=== PATIENT | male | born 1945 | race African-American/Black ===

== ENCOUNTER 2017-11-28 18:26 | Emergency (ER) | payer MEDICARE ==
[~2017-11-28] VITALS: Ht 180.3 cm; Wt 103.4 kg
[2017-11-28] MEDS ORDERED: FAMOTIDINE 20 MG TAB PO ONE (20:15)
[2017-11-28] MEDS ORDERED: DEXAMETHASONE SOD PHOS 10 MG/1 ML VIAL INH ONE (20:15)
== END 2017-11-28 20:47 | disposition home or self-care (01) ==
LOC: ER 18:26
DX: L50.0 Allergic urticaria (principal); T61.784A Other shellfish poisoning, undetermined, initial encounter; I10 Essential (primary) hypertension
CPT/HCPCS: 96372; 99283; J1100

== ENCOUNTER 2019-12-27 11:18 | Inpatient (IN) | payer MEDICARE, OTHER ==
[~2019-12-27] VITALS: Ht 180.3 cm; Wt 98.9 kg
--- OUTSIDE RECORDS SUMMARY | 2019-12-27 11:20 | XMS REPORT ---
Author [facility] Address Unknown Phone Unavailable Care Team Providers Care Online Marketing Coordinator Name Role Phone NONSTAFF PP Unavailable Payers Payer Name Policy Type Policy Number Effective Date Expiration Date Medicare A & B [id number] Problems This patient has no known problems. Allergies, Adverse Reactions, Alerts This patient has no known allergies or adverse reactions. Medications This patient has no known medications. Encounters Start Date/Time End Date/Time Encounter Type Admission Type Attending [facility] Care Facility Care Department Encounter ID 2017-11-28 18:26:00 2017-11-28 20:47:00 Departed Emergency Room [facility] [id number]
[2019-12-27] MEDS ORDERED: SODIUM CHLORIDE 0.9% 1000ML 1,000 ML IV STA (11:40)
[2019-12-27] MEDS ORDERED: PANTOPRAZOLE 40 MG 10ML VIAL IV STA (11:40)
[2019-12-27 11:51] LABS: BASOPHILS # (AUTO) 0.1 (0.0-0.1); BASOPHILS % 0.7 % (0.0-1.0); EOSINOPHILS # (AUTO) 0.1 (0.0-0.4); EOSINOPHILS % 1.6 % (0.0-6.0); HEMATOCRIT 41.2 % (38.2-49.6); HEMOGLOBIN 14.2 g/dL (14.0-18.0); LYMPHOCYTES # (AUTO) 2.5 (1.0-3.2); MEAN CORPUSCULAR HEMOGLOBIN 31.9 pg (28-32); MEAN CORPUSCULAR HGB CONC 34.5 g/dL (31-35); MEAN CORPUSCULAR VOLUME 92.6 fL (81-99); MONOCYTES # (AUTO) 0.8 (0.2-0.8); MONOCYTES % 10.3 % (4.4-11.3); NEUTROPHILS # (AUTO) 4.1 (2.1-6.9); NEUTROPHILS % 54.1 % (38.7-80.0); PLATELET COUNT 264 x10e3/uL (140-360); RED BLOOD COUNT 4.45 x10e6/uL (4.3-5.7); RED CELL DISTRIBUTION WIDTH 11.7 % (11.7-14.4)
[2019-12-27 12:02] LABS: INR 0.98; PARTIAL THROMBOPLASTIN TIME 26.2 seconds (23.8-35.5); PROTHROMBIN TIME 13.6 seconds (11.9-14.5)
[2019-12-27 12:13] LABS: ALANINE AMINOTRANSFERASE 19 IU/L (0-55); ALBUMIN 3.8 g/dL (3.5-5.0); ALBUMIN/GLOBULIN RATIO 1.3 (0.8-2.0); ALKALINE PHOSPHATASE 57 IU/L (40-150); ANION GAP 11.2 mmol/L (8-16); BLOOD UREA NITROGEN 12 mg/dL (7-26); BUN/CREATININE RATIO 11 (6-25); CARBON DIOXIDE 24 mmol/L (22-29); CHLORIDE 107 mmol/L (98-107); CREATINE KINASE 367 IU/L (30-200); CREATININE, SERUM 1.05 mg/dL (0.72-1.25); EST GLOMERULAR FILTRATION RATE > 60 ML/MIN (60-); GLUCOSE 198 mg/dL (74-118); MAGNESIUM 1.8 MG/DL (1.3-2.1); POTASSIUM 4.2 mmol/L (3.5-5.1); SODIUM 138 mmol/L (136-145)
[2019-12-27] MEDS ORDERED: DIATRIZOATE MEGL/DIATRIZOA SOD 30 ML BTL PO ONE (12:40)
[2019-12-27] MEDS ORDERED: SODIUM CHLORIDE 0.9% 50ML 50 ML ONE (13:33)
[2019-12-27] MEDS ORDERED: IOPAMIDOL 370 MG/ML 200 ML INFUS..BTL INJ ONE (13:33)
--- NOTE | 2019-12-27 14:06 | Diagnostic Imaging Report ---
CT of the abdomen and pelvis History: Bright blood per rectum, suprapubic and left lower quadrant tenderness Comparison: None available. Technique: Multidetector CT scanning of the abdomen and pelvis was performed from the level of the lung bases to the inferior pubic ramus with IV and oral contrast. DOSE REDUCTION: The examination was performed according to departmental dose-optimization program which includes automated exposure control, adjustment of the mA and/or kV according to patient size and/or use of iterative reconstruction technique. Discussion: The lung bases are clear. No focal hepatic lesions are identified. The gallbladder is present nondistended. There are radiopaque gallstones. Spleen is within normal limits. The bilateral adrenal glands are unremarkable. The pancreas is normal in attenuation. There is no pancreatic ductal dilatation or peripancreatic inflammatory stranding. The kidneys are normal in size and enhance symmetrically. There is no hydroureteronephrosis bilaterally. No renal calculi are identified. The stomach, small, and large bowel are nondistended. There is no evidence of obstruction. The appendix is normal. There is extensive colonic diverticulosis throughout the entire colon. Focal wall thickening with mild surrounding inflammatory changes in the mesenteric fat are present in the sigmoid colon compatible with acute diverticulitis. There is no evidence of perforation or abscess formation. There is no free intraperitoneal air or ascites. The abdominal aorta is of normal course and caliber and demonstrates mild atherosclerotic calcifications. The urinary bladder is within normal limits. The prostate is not enlarged There are no acute osseous abnormalities. There are multilevel degenerative changes of the thoracolumbar spine which are most pronounced at L4-L5 IMPRESSION: Acute sigmoid diverticulitis. No evidence of perforation or abscess formation. Signed by: Wong Holm MD on 12/27/2019 2:02 PM
[2019-12-27] MEDS ORDERED: PIPER-TAZ 3.375 GM 50 ML IV SCH (14:15)
[2019-12-27] MEDS: METRONIDAZOLE 500MG/NS 100ML 100 ML IV SCH ×2 (14:15→20:33)
[2019-12-27] MEDS: SODIUM CHLORIDE 0.9% 1000ML 1,000 ML IV SCH ×2 (14:18→21:39)
[2019-12-27] MEDS ORDERED: PIPER-TAZ 3.375 GM 50 ML ONE (14:26)
[2019-12-27] MEDS: PIPER-TAZ 3.375 GM 50 ML IV SCH ×2 (15:00→21:39)
--- NOTE | 2019-12-27 15:06 | NUR ---
Recvd patient from ER. AAOx3 , Assisted him to bed, no distress noted, keep monitoring
[2019-12-27 16:20] VITALS: BP 164/104
[2019-12-27 16:30] VITALS: BP 132/96
[2019-12-27] MEDS ORDERED: CLONIDINE HCL 0.1 MG TAB PO PRN (18:15)
--- NOTE | 2019-12-27 19:20 | NUR ---
RECEIVED THE PT IN REPORT.LYEING IN THE BED.IV FLUID RUNNING.STABLE CONDITION.
[2019-12-27 20:00] VITALS: BP 136/79
[2019-12-27 20:18] LABS: BASOPHILS # (AUTO) 0.1 (0.0-0.1); BASOPHILS % 0.9 % (0.0-1.0); EOSINOPHILS # (AUTO) 0.1 (0.0-0.4); EOSINOPHILS % 1.4 % (0.0-6.0); HEMATOCRIT 42.1 % (38.2-49.6); HEMOGLOBIN 13.7 g/dL (14.0-18.0); LYMPHOCYTES # (AUTO) 2.5 (1.0-3.2); LYMPHOCYTES % 35.9 % (18.0-39.1); MEAN CORPUSCULAR HEMOGLOBIN 32.2 pg (28-32); MEAN CORPUSCULAR HGB CONC 32.5 g/dL (31-35); MEAN CORPUSCULAR VOLUME 99.1 fL (81-99); MONOCYTES # (AUTO) 0.6 (0.2-0.8); MONOCYTES % 9.3 % (4.4-11.3); NEUTROPHILS # (AUTO) 3.6 (2.1-6.9); NEUTROPHILS % 52.2 % (38.7-80.0); PLATELET COUNT 236 x10e3/uL (140-360); RED BLOOD COUNT 4.25 x10e6/uL (4.3-5.7); RED CELL DISTRIBUTION WIDTH 11.9 % (11.7-14.4)
--- NOTE | 2019-12-27 21:07 | History and Physical ---
CHIEF COMPLAINT: A 74-year-old gentleman with no prior history, was in usual state of health until he came into the emergency room with rectal bleeding. HISTORY OF PRESENT ILLNESS: Mr. Tracy Arriaga with no prior medical history, was in usual state of health until yesterday when the patient was noted some abdominal pain associated with rectal bleeding. The patient did not mind too much of it, so this is a continuum of problems and the patient did have dark stools with bright red blood in it and had 6 episodes before coming to the hospital, admitted to the hospital for lower GI bleed. The patient has a history of recent travel from [place] about 2 months ago and was seeing his son and has not gone back to [place] yet. The patient had his colonoscopy in 2017, which was normal. PAST MEDICAL HISTORY: Noncontributory. PAST SURGICAL HISTORY: History of hemorrhoidectomy. MEDICATIONS: No medications. ALLERGIES: NO KNOWN DRUG ALLERGIES. SOCIAL HISTORY: No EtOH abuse. No IV drug abuse and no smoking. FAMILY HISTORY: Noncontributory in the family. REVIEW OF SYSTEMS: Negative for chest pain. No shortness of breath. No nausea. No vomiting. No diarrhea. No constipation. Positive for rectal bleeding. No hematemesis either. PHYSICAL EXAMINATION: GENERAL: The patient is alert and oriented x3. No acute distress at this time. VITAL SIGNS: Temperature is 99.1, pulse of 104, respirations 16, blood pressure is 191/98 initially with a pulse oximetry of 98%, currently it is 132/96. HEENT: Normocephalic and atraumatic. Pupils are reactive to light and accommodation. CVS: S1 and S2 normal. Regular rate and rhythm. ABDOMEN: Slightly tender in the left lower quadrant. EXTREMITIES: No clubbing. No cyanosis. No edema. LABORATORY VALUES: White count of 7.60, hemoglobin 14.2, and hematocrit 41.2. Chemistry shows sodium 132, potassium of 4.2, BUN of 12, and creatinine of 1.05. Coags all within normal limits. Stool occult was positive. IMAGING STUDIES: CT of the abdomen and pelvis shows acute sigmoid diverticulitis. No evidence of perforation or abscess formation seen. ASSESSMENT: Mr. Tracy Arriaga with: 1. Diverticulitis. 2. Gastrointestinal bleed. 3. High blood pressure. 4. Abdominal pain. PLAN: Continue with antibiotics. The patient is currently on NaCl 125 mL/h. He is on Zosyn and Flagyl. We will continue on same pantoprazole 40 mg q.12 hours. Continue to monitor the patient. Soft GI diet can be started. GI consult has been done. The patient has been stressed on going back to [place] and having a colonoscopy done at a later date in 3 months from now. Further recommendation per clinical course. We will continue to monitor the patient. Possible discharge in 1 to 2 days depending on the progression of the disease and the symptoms. MD LOUISA OliveiraJ/MODL /[id number]
[2019-12-27] MEDS: PANTOPRAZOLE 40 MG 10ML VIAL IV SCH (21:39)
[2019-12-27 21:54] VITALS: BP 136/79
--- NOTE | 2019-12-27 22:00 | NUR ---
ASSESSMENT DONE.NO RESP.DISTRESS.NO PAIN VOICED.BED LOCKED AND IN LOWEST POSITION.PHONE AND CALL LIGHT WITHIN REACH.INSTRUCTED TO CALL FOR ASSISTANCE NEEDED.
[2019-12-28] VITALS (8 sets, daily range): BP systolic 128–145; BP diastolic 76–98
[2019-12-28] MEDS: METRONIDAZOLE 500MG/NS 100ML 100 ML IV SCH ×4 (02:32→20:30)
[2019-12-28] MEDS: PIPER-TAZ 3.375 GM 50 ML IV SCH ×4 (04:14→21:50)
--- NOTE | 2019-12-28 05:00 | NUR ---
WAS IN THE UNIT.HE WILL SEE THE PATIENT TODAY.PATIENT SLEPT WELL.NO PAIN VOICED.STABLE CONDITION.
[2019-12-28 05:33] LABS: BASOPHILS # (AUTO) 0.1 (0.0-0.1); BASOPHILS % 0.8 % (0.0-1.0); EOSINOPHILS # (AUTO) 0.2 (0.0-0.4); HEMATOCRIT 33.1 % (38.2-49.6); HEMOGLOBIN 11.2 g/dL (14.0-18.0); LYMPHOCYTES # (AUTO) 2.3 (1.0-3.2); LYMPHOCYTES % 31.4 % (18.0-39.1); MEAN CORPUSCULAR HEMOGLOBIN 31.8 pg (28-32); MEAN CORPUSCULAR HGB CONC 33.8 g/dL (31-35); MONOCYTES # (AUTO) 0.7 (0.2-0.8); MONOCYTES % 9.8 % (4.4-11.3); NEUTROPHILS % 54.6 % (38.7-80.0); PLATELET COUNT 212 x10e3/uL (140-360); RED BLOOD COUNT 3.52 x10e6/uL (4.3-5.7); RED CELL DISTRIBUTION WIDTH 11.8 % (11.7-14.4)
[2019-12-28 05:57] LABS: ALANINE AMINOTRANSFERASE 15 IU/L (0-55); ALBUMIN 2.9 g/dL (3.5-5.0); ALBUMIN/GLOBULIN RATIO 1.1 (0.8-2.0); ALKALINE PHOSPHATASE 46 IU/L (40-150); BLOOD UREA NITROGEN 9 mg/dL (7-26); BUN/CREATININE RATIO 8 (6-25); CALCIUM 8.1 mg/dL (8.4-10.2); CARBON DIOXIDE 26 mmol/L (22-29); CHLORIDE 111 mmol/L (98-107); CREATININE, SERUM 1.06 mg/dL (0.72-1.25); EST GLOMERULAR FILTRATION RATE > 60 ML/MIN (60-); GLUCOSE 101 mg/dL (74-118); SODIUM 141 mmol/L (136-145)
--- NOTE | 2019-12-28 07:00 | NUR ---
BED SIDE SHIFT REPORT GIVEN TO ONCOMING RN.STABLE CONDITION.
--- NOTE | 2019-12-28 08:09 | Progress Note ---
DATE: SUBJECTIVE: A 74-year-old healthy male, who comes in with diverticulitis of the sigmoid colon. The patient has no more rectal bleeding. No chest pain. No shortness of breath. No nausea. No vomiting. No diarrhea. The patient has been kept n.p.o. by GI. OBJECTIVE: VITAL SIGNS: Temperature is 98.1, pulse of 86, respirations of 22, blood pressure is 145/76. HEENT: Normocephalic and atraumatic. Pupils are reactive. CVS: S1 and S2 normal. Regular rate and rhythm. ABDOMEN: Tender in the left lower quadrant. EXTREMITIES: No clubbing, no cyanosis, no edema. LABORATORY VALUES: White count is 7.32, hemoglobin 11.2, hematocrit of 33.1. Chemistry shows sodium 141, chloride of 111, calcium of 8.1, total bilirubin is 1.4. Coags are normal. IMAGING STUDIES: From yesterday shows sigmoid diverticulitis. ASSESSMENT: Mr. Tracy Arriaga is with. 1. Gastrointestinal bleed, presumably upper and lower because of dark stools and also bright red blood per rectum. 2. Diverticulitis of the sigmoid. 3. Abdominal pain. PLAN: Continue with antibiotics as ordered. He has been kept n.p.o. by GI. Blood pressure is trending slightly up. Since he is kept n.p.o., we will keep on the same fluid rate. Further recommendation per clinical course. MD GHADA Oliveira/MODL /[id number]
[2019-12-28] MEDS: PANTOPRAZOLE 40 MG 10ML VIAL IV SCH ×2 (09:18→20:30)
[2019-12-28 16:09] LABS: BASOPHILS # (AUTO) 0.1 (0.0-0.1); BASOPHILS % 0.8 % (0.0-1.0); EOSINOPHILS # (AUTO) 0.3 (0.0-0.4); EOSINOPHILS % 4.4 % (0.0-6.0); HEMATOCRIT 32.2 % (38.2-49.6); HEMOGLOBIN 10.7 g/dL (14.0-18.0); LYMPHOCYTES # (AUTO) 2.2 (1.0-3.2); LYMPHOCYTES % 35.1 % (18.0-39.1); MEAN CORPUSCULAR HEMOGLOBIN 31.8 pg (28-32); MEAN CORPUSCULAR HGB CONC 33.2 g/dL (31-35); MEAN CORPUSCULAR VOLUME 95.8 fL (81-99); MONOCYTES # (AUTO) 0.8 (0.2-0.8); MONOCYTES % 11.8 % (4.4-11.3); NEUTROPHILS % 47.7 % (38.7-80.0); PLATELET COUNT 201 x10e3/uL (140-360); RED BLOOD COUNT 3.36 x10e6/uL (4.3-5.7); RED CELL DISTRIBUTION WIDTH 11.9 % (11.7-14.4)
--- NOTE | 2019-12-28 20:00 | NUR ---
Pt visited in room during nursing rounds. Patient alert and oriented x3. Ambulatory in room prn. Pt states he's still been having loose and bloody stools throughout the day but claim the amount of blood is wearing down in amount. CBC to be checked tonight and in AM. Pt on scheduled IV antibiotics. Call schmid within reach. Will monitor closely.
[2019-12-28 21:14] LABS: BASOPHILS # (AUTO) 0.1 (0.0-0.1); EOSINOPHILS # (AUTO) 0.2 (0.0-0.4); EOSINOPHILS % 4.2 % (0.0-6.0); HEMATOCRIT 31.8 % (38.2-49.6); HEMOGLOBIN 10.8 g/dL (14.0-18.0); LYMPHOCYTES # (AUTO) 2.2 (1.0-3.2); MEAN CORPUSCULAR HEMOGLOBIN 32.3 pg (28-32); MEAN CORPUSCULAR VOLUME 95.2 fL (81-99); MONOCYTES # (AUTO) 0.6 (0.2-0.8); MONOCYTES % 10.6 % (4.4-11.3); NEUTROPHILS # (AUTO) 2.6 (2.1-6.9); PLATELET COUNT 206 x10e3/uL (140-360); RED BLOOD COUNT 3.34 x10e6/uL (4.3-5.7); RED CELL DISTRIBUTION WIDTH 11.8 % (11.7-14.4)
--- NOTE | 2019-12-28 23:55 | NUR ---
Dr. Thad Graham came and visited pt in room. aware of pt condition. Pt ordered to change diet from Clear liquid to Full liquid diet. No procedures ordered at this time.
[2019-12-29] VITALS (7 sets, daily range): BP systolic 114–144; BP diastolic 72–89
[2019-12-29] MEDS: METRONIDAZOLE 500MG/NS 100ML 100 ML IV SCH ×4 (02:28→20:00)
[2019-12-29] MEDS: PIPER-TAZ 3.375 GM 50 ML IV SCH ×4 (03:30→21:39)
[2019-12-29 05:50] LABS: BASOPHILS # (AUTO) 0.1 (0.0-0.1); BASOPHILS % 0.9 % (0.0-1.0); EOSINOPHILS # (AUTO) 0.3 (0.0-0.4); EOSINOPHILS % 4.9 % (0.0-6.0); HEMATOCRIT 30.5 % (38.2-49.6); HEMOGLOBIN 10.2 g/dL (14.0-18.0); LYMPHOCYTES # (AUTO) 2.2 (1.0-3.2); LYMPHOCYTES % 39.7 % (18.0-39.1); MEAN CORPUSCULAR HEMOGLOBIN 31.9 pg (28-32); MEAN CORPUSCULAR HGB CONC 33.4 g/dL (31-35); MEAN CORPUSCULAR VOLUME 95.3 fL (81-99); MONOCYTES # (AUTO) 0.6 (0.2-0.8); MONOCYTES % 11.2 % (4.4-11.3); NEUTROPHILS # (AUTO) 2.4 (2.1-6.9); NEUTROPHILS % 42.9 % (38.7-80.0); PLATELET COUNT 203 x10e3/uL (140-360); RED CELL DISTRIBUTION WIDTH 11.8 % (11.7-14.4)
[2019-12-29 06:06] LABS: ANION GAP 6.6 mmol/L (8-16); BLOOD UREA NITROGEN 6 mg/dL (7-26); BUN/CREATININE RATIO 6 (6-25); CALCIUM 8.3 mg/dL (8.4-10.2); CARBON DIOXIDE 25 mmol/L (22-29); CHLORIDE 112 mmol/L (98-107); CREATININE, SERUM 1.04 mg/dL (0.72-1.25); EST GLOMERULAR FILTRATION RATE > 60 ML/MIN (60-); GLUCOSE 103 mg/dL (74-118); POTASSIUM 3.6 mmol/L (3.5-5.1); SODIUM 140 mmol/L (136-145)
--- NOTE | 2019-12-29 07:29 | NUR ---
RECEIVED REPORT FROM PAVING AND SURFACING LABOURER NURSE, PATIENT IS AWAKE SITTING ON COUCH, NO DISTRESS NOTED, A&OX3, CALL LIGHT WITHIN REACH, WILL CONTINUE TO MONITOR.
--- NOTE | 2019-12-29 08:13 | Progress Note ---
DATE: SUBJECTIVE: The patient comes in with diverticulitis, history of rectal bleeding. Currently, the patient feels better, but however had 2 large rectal bleed this morning, seen on the commode. The patient otherwise feels okay, but still complains of some left lower quadrant pain. No chest pain. No shortness of breath. OBJECTIVE: VITAL SIGNS: Temperature is 98.1, pulse of 85, respirations of 20, blood pressure is 114/89, pulse oximetry 100%. HEENT: Normocephalic and atraumatic. No icterus present. CVS: S1 and S2 normal. Regular rate and rhythm. ABDOMEN: Slightly tender in the left lower quadrant. EXTREMITIES: No clubbing. No cyanosis. No edema. LABORATORY VALUES: White count is normal, hemoglobin of 10.2, hematocrit of 30.5. Chemistry; sodium 140, potassium of 3.6, BUN of 6, creatinine of 1.04. Troponins are negative. Coags are normal. ASSESSMENT: Mr. Molina Cage with. 1. Diverticulitis. 2. Gastrointestinal bleed. 3. Abdominal pain. PLAN: Continue with IV antibiotics as scheduled. The patient is currently on Zosyn and metronidazole. Continue Protonix 40 mg q.12 hours and clonidine as needed for blood pressure control. Disposition would be to discharge him in 1 to 2 days. If the patient continues to have GI bleed, we might have to observe him more, but at this time, full liquid diet and some gently advance diet. Further recommendation per clinical course and also the patient's GI bleed. MD GHADA Oliveira/WILLIAML /[id number]
[2019-12-29] MEDS: PANTOPRAZOLE 40 MG 10ML VIAL IV SCH ×2 (09:16→20:00)
--- NOTE | 2019-12-29 19:30 | NUR ---
Pt visited in room during nursing rounds. Patient alert and oriented x3. Ambulatory in room prn. Pt states his bowel movements getting better with less blood mixed with stools throughout the day. CBC to be checked tonight and in AM. Pt on scheduled IV antibiotics. Call schmid within reach. Will monitor closely.
--- NOTE | 2019-12-29 22:55 | NUR ---
Dr. Giuseppe Graham came and saw pt. aware of pt condition. MD ordered to change patient's diet from full liquid to GI soft diet.
[2019-12-30] VITALS (8 sets, daily range): BP systolic 130–165; BP diastolic 59–86
[2019-12-30] MEDS: METRONIDAZOLE 500MG/NS 100ML 100 ML IV SCH ×3 (02:14→14:37)
[2019-12-30] MEDS: PIPER-TAZ 3.375 GM 50 ML IV SCH ×4 (03:36→20:30)
[2019-12-30 05:34] LABS: BASOPHILS % 0.6 % (0.0-1.0); EOSINOPHILS # (AUTO) 0.3 (0.0-0.4); EOSINOPHILS % 4.4 % (0.0-6.0); HEMATOCRIT 32.6 % (38.2-49.6); HEMOGLOBIN 10.9 g/dL (14.0-18.0); LYMPHOCYTES # (AUTO) 2.4 (1.0-3.2); LYMPHOCYTES % 38.4 % (18.0-39.1); MEAN CORPUSCULAR HEMOGLOBIN 31.4 pg (28-32); MEAN CORPUSCULAR HGB CONC 33.4 g/dL (31-35); MEAN CORPUSCULAR VOLUME 93.9 fL (81-99); MONOCYTES # (AUTO) 0.7 (0.2-0.8); MONOCYTES % 10.8 % (4.4-11.3); NEUTROPHILS # (AUTO) 2.9 (2.1-6.9); NEUTROPHILS % 45.5 % (38.7-80.0); PLATELET COUNT 225 x10e3/uL (140-360); RED BLOOD COUNT 3.47 x10e6/uL (4.3-5.7); RED CELL DISTRIBUTION WIDTH 11.8 % (11.7-14.4)
--- NOTE | 2019-12-30 07:00 | NUR ---
BEDSIDE SHIFT REPORT RECEIVED FROM THE SERVICE VEHICLE OPERATOR RN. CALL LIGHT WITH IN EASY REACH. INSTRUCTED PT TO USE CALL LIGHT FOR ALL THE NEEDS. EDUCATED PT ABOUT FALL PRECAUTIONS. PT VERBALIZED UNDERSTANDING. BED IS LOW AND LOCKED. SIDE RAILS X2. PT DENIES NEEDS AT THIS TIME.
--- NOTE | 2019-12-30 07:52 | Progress Note ---
DATE: SUBJECTIVE: A 74-year-old gentleman, who came in with rectosigmoid diverticulitis. The patient is feeling better. However, the patient continues to have rectal bleeding and on pantoprazole, Zosyn, and metronidazole. No chest pain. No shortness of breath. The patient had five episodes of rectal bleeding, but small streaks and also one episode, where he had a large amount of blood. No chest pain or shortness of breath. OBJECTIVE: VITAL SIGNS: Temperature is 98.1, pulse of 84, respirations of 18, blood pressure is 136/81, pulse oximetry 100%. HEENT: Normocephalic and atraumatic. Pupils reactive to light and accommodation. CVS: S1 and S2 normal. Regular rate and rhythm. ABDOMEN: Nontender and nondistended. EXTREMITIES: No clubbing, no cyanosis, no edema. LABORATORY STUDIES: Hemoglobin is 10.9, hematocrit of 32.6 today. Chemistries is stable. BUN and creatinine stable. ASSESSMENT: Rectosigmoid diverticulitis with acute bleed, continues to bleed. PLAN: We will keep the patient in the hospital one more day. Advance diet slowly. He is on some soft mechanical diet at this time. We will start back on a full liquid diet and then continue to monitor the patient. If tomorrow, the patient is stable, hemoglobin stable, and the pain is better, we will go ahead and discharge him on p.o. antibiotic. Further recommendation per clinical course. We will discuss the case with Dr. Thad Graham. MD GHADA Oliveira/WILLIAML /[id number]
[2019-12-30] MEDS: PANTOPRAZOLE 40 MG 10ML VIAL IV SCH (08:09)
--- NOTE | 2019-12-30 09:30 | NUR ---
PT REPORTED BLOOD IN STOOL. PAGED DR. Chris HAYDEN AND REPORTED THE SAME.
--- NOTE | 2019-12-30 14:05 | NUR ---
Visit made by Gia Gonzalez. Deputy Grand Jury provided pastoral presence, prayer, hospitality, and supportive listening. Deputy Grand Jury informed pt/family of the scope of Business Case Analyst Services and availability. TER[facility] Department O: [phone]
[2019-12-30] MEDS: METRONIDAZOLE 500 MG TAB PO SCH (17:45)
--- NOTE | 2019-12-30 19:45 | NUR ---
BEDSIDE SHIFT REPORT GIVEN TO THE DANCING MASTER RN. PT DENIED FURTHER NEEDS.
--- NOTE | 2019-12-30 19:45 | NUR ---
RECEIVED PATIENT IN REPORT. PATIENT RESTING IN BED AT THIS TIME. NO PAIN REPORTED. NO S&S OF DISTRESS NOTED. PATIENT REPORTS MULTIPLE LOOSE BMS TODAY, SOME WITH NOTABLE BLOOD IN THEM. WILL CONTINUE TO MONITOR. BED LOCKED IN LOWEST POSITION, SIDE RAILS UPX2, CALL LIGHT IN REACH.
[2019-12-30] MEDS: PANTOPRAZOLE SOD 40 MG TABEC PO SCH (20:30)
--- NOTE | 2019-12-30 23:30 | NUR ---
MD Chris MAURICIODAD IN TO SEE PATIENT AT THIS TIME. COLONOSCOPY TOMORROW D/T CONTINUED BLOODY STOOL. NEW ORDERS RECEIVED.
[2019-12-31] VITALS (8 sets, daily range): BP systolic 104–144; BP diastolic 58–84
[2019-12-31] MEDS: METRONIDAZOLE 500 MG TAB PO SCH ×5 (00:10→22:00)
[2019-12-31] MEDS ORDERED: BISACODYL 5 MG TAB EC PO ONE ×3 (00:30→01:00)
[2019-12-31] MEDS: PIPER-TAZ 3.375 GM 50 ML IV SCH ×4 (03:15→21:00)
[2019-12-31] MEDS ORDERED: CITRATE OF MAGNESIA 300ML BOTTLE PO ONE ×2 (05:00→07:00)
[2019-12-31 05:38] LABS: BASOPHILS # (AUTO) 0.1 (0.0-0.1); BASOPHILS % 0.8 % (0.0-1.0); EOSINOPHILS # (AUTO) 0.3 (0.0-0.4); EOSINOPHILS % 3.7 % (0.0-6.0); HEMOGLOBIN 11.3 g/dL (14.0-18.0); LYMPHOCYTES # (AUTO) 2.9 (1.0-3.2); LYMPHOCYTES % 36.4 % (18.0-39.1); MEAN CORPUSCULAR HEMOGLOBIN 31.5 pg (28-32); MEAN CORPUSCULAR HGB CONC 33.2 g/dL (31-35); MEAN CORPUSCULAR VOLUME 94.7 fL (81-99); MONOCYTES # (AUTO) 0.8 (0.2-0.8); MONOCYTES % 10.7 % (4.4-11.3); NEUTROPHILS # (AUTO) 3.8 (2.1-6.9); PLATELET COUNT 245 x10e3/uL (140-360); RED BLOOD COUNT 3.59 x10e6/uL (4.3-5.7); RED CELL DISTRIBUTION WIDTH 11.9 % (11.7-14.4)
--- NOTE | 2019-12-31 06:30 | NUR ---
Pt stool observed, clear stool noted post 1 mag citrate and 60mg dulcolux
--- NOTE | 2019-12-31 07:00 | NUR ---
BEDSIDE SHIFT REPORT RECEIVED FROM THE EXTRUDER OPERATOR MULTIPLE RN. CALL LIGHT WITH IN EASY REACH. INSTRUCTED PT TO USE CALL LIGHT FOR ALL THE NEEDS. EDUCATED PT ABOUT FALL PRECAUTIONS. PT VERBALIZED UNDERSTANDING. BED IS LOW AND LOCKED. SIDE RAILS X2. PT IS ON NPO FOR COLONOSCOPY. PT DENIES NEEDS AT THIS TIME.
--- NOTE | 2019-12-31 07:10 | NUR ---
PT IS GOING FOR COLONOSCOPY TODAY. PT NEED PROTOCOL COVID 19 TEST BEFORE COLONOSCOPY PER CUTTING TABLE OPERATOR FIRST. OKAY TO ORDER THE TEST PER DR. DINH. NO ISOLATION NEEDED AT THIS TIME.
--- NOTE | 2019-12-31 08:36 | Progress Note ---
DATE: SUBJECTIVE: The patient comes with GI bleed, continues to have bloody diarrhea. The patient was on clear liquid diet yesterday, continued to have 3 episodes of diarrhea, bloody. No nausea or vomiting. The patient is due for colonoscopy by Dr. Thad Graham today. OBJECTIVE: VITAL SIGNS: Temperature is 98.5, pulse of 85, respiration rate of 18, blood pressure is 107/72. HEENT: Normocephalic and atraumatic. No icterus present. CVS: S1 and S2 are normal. Regular rate and rhythm. ABDOMEN: Nontender, nondistended. EXTREMITIES: No clubbing, no cyanosis, no edema. LABORATORY VALUES: Today's hemoglobin is up to 11.3 with hematocrit of 34.3. Chemistries are normal, chloride of 112. Coags normal. ASSESSMENT: Mr. Arriaga with. 1. Acute gastrointestinal bleed, bloody diarrhea. 2. Sigmoid diverticulitis. 3. History of colon polyps. PLAN: Continue monitoring the patient, scheduled for colonoscopy today with Dr. Graham for his diverticulitis. IV antibiotics. Further recommendation per clinical course and depending on the colonoscopy results. MD GHADA Oliveira/WILLIAML /[id number]
[2019-12-31] MEDS: PANTOPRAZOLE SOD 40 MG TABEC PO SCH ×2 (08:40→21:00)
--- NOTE | 2019-12-31 08:54 | NUR ---
CALL RECEIVED FROM DR. Chris HAYDEN. NO ENEMA PER THE
--- NOTE | 2019-12-31 12:55 | NUR ---
PT OFF UNIT FOR PROCEDURE IN SAFE CONDITION.
--- NOTE | 2019-12-31 15:12 | Operative Report ---
DATE OF PROCEDURE: 12/31/2019 SURGEON: Thad Graham MD PROCEDURE: Colonoscopy with polypectomy. INDICATIONS FOR COLONOSCOPY: Rectal bleeding. MEDICATIONS: The patient was done under MAC, please see anesthesiologist's note. PROCEDURE IN DETAIL: With the patient in the left lateral decubitus position, a flexible fiberoptic Olympus colonoscope was inserted into the rectum with ease and advanced all the way to the cecum. Diverticular disease was noted throughout the colon. The scope was then withdrawn slowly and mucosa overlying the cecum appeared to be within normal limits. Other than for diverticular disease, ascending colon appeared to be within normal limits. Two polyps were hot snared from the transverse colon and one polypectomy site was hemoclipped x1. The descending colon other than for diverticulosis appeared to be within normal limits. There was no active bleeding noted and no blood was noted in the colon. Two polyps were hot snared from the sigmoid colon and a minute submucosal nodule was hot biopsied from the rectum. The scope was then retroflexed into the distal rectum and moderate-sized internal hemorrhoids were noted, none of which was actively bleeding. The scope was then straightened out and was subsequently withdrawn. The patient tolerated the procedure well. IMPRESSION: 1. Mattson-diverticulosis. 2. Transverse colon polyps x2, hot snared and one polypectomy site hemoclipped x1. 3. Sigmoid colon polyps x2, hot snared. 4. Rectal submucosal nodule, hot biopsied. 5. Internal hemorrhoids, none actively bleeding. PLAN: Follow up histology. Follow up stool studies. Follow up H and H. initiate GI soft diet. Thad Graham MD [facility] [place] /[id number] cc: Mitesh Kenyon MD
--- NOTE | 2019-12-31 15:15 | NUR ---
PT BACK TO UNIT AFTER PROCEDURE. AAOX4. PT DENIES NEEDS AT THIS TIME.
[2019-12-31] MEDS ORDERED: METRONIDAZOLE 500 MG TAB PO SCH (18:00)
--- NOTE | 2019-12-31 19:00 | NUR ---
BEDSIDE SHIFT REPORT GIVEN TO THE PRODUCTION HONING MACHINE OPERATOR RN. PT DENIED FURTHER NEEDS.
--- NOTE | 2019-12-31 19:10 | NUR ---
Bedside rounds completed with morning nurse. Pt alert to name, lying in bed HOB 45 degrees. Pt denies pain at this time. Call light within reach. Will continue to monitor.
[2019-12-31] MEDS ORDERED: GLUCAGON FOR INJ 1 MG VIAL ONE (19:11)
[2019-12-31] MEDS ORDERED: PROPOFOL IV EMULSION 10 MG/ML 20 ML VIAL ONE (19:11)
--- NOTE | 2019-12-31 20:44 | NUR ---
EKG completed as ordered, NSR, vent rate 79. Pt denies chest pain, no SOB, diaphoresis noted. Addendum: 01/01/20 at 0624 by Rosemarie Broussard RN wrong chart
--- NOTE | 2019-12-31 21:33 | NUR ---
Dr. Giuseppe Graham spoke with mars Dubon giving update status from GI standpoint. Addendum: 01/01/20 at 0625 by Rosemarie Broussard RN pamela bran
[2020-01-01 00:26] VITALS: BP 128/73
[2020-01-01] MEDS: PIPER-TAZ 3.375 GM 50 ML IV SCH (03:00)
[2020-01-01] MEDS: METRONIDAZOLE 500 MG TAB PO SCH (03:59)
[2020-01-01 04:00] VITALS: BP 123/78
--- NOTE | 2020-01-01 06:19 | NUR ---
Pt lying in bed quietly with eyes closed, no acte distress noted. Call light within reach.
[2020-01-01] MEDS ORDERED: METRONIDAZOLE500 MG PO (07:34)
[2020-01-01] MEDS ORDERED: CIPRO500 MG PO (07:34)
[2020-01-01 07:59] VITALS: BP 118/72
--- NOTE | 2020-01-01 08:00 | NUR ---
Discharge instructions and prescriptions were given to the patient. He verbalized understanding. IV to the right arm was removed with tip intact
[2020-01-01 08:56] VITALS: BP 118/72
--- NOTE | 2020-01-01 09:39 | Progress Note ---
DATE: SUBJECTIVE: The patient is a 74-year-old gentleman, who comes in with diverticulosis, had a colonoscopy yesterday, showed extensive diverticulosis and internal hemorrhoids without stigmata of bleeding. The patient is comfortable today. Increase his diet. No chest pain or shortness of breath. No nausea, vomiting, or diarrhea. Mentioned to the patient need for possible elective surgery at a later date to remove . The patient is agreeable to it. He is going to go back to [place] for that. OBJECTIVE: VITAL SIGNS: Temperature is 97.9, pulse of 90, blood pressure is 123/78, respirations of 18, pulse oximetry of 98%. HEENT: Normocephalic and atraumatic. Pupils are reactive. CVS: S1 and S2 are normal. Regular rate and rhythm. ABDOMEN: Nontender at this time. EXTREMITIES: No clubbing, no cyanosis, no edema. LABORATORY VALUES: Yesterday's white count is good, hemoglobin and hematocrit are within normal limits. Chemistries all normal. ASSESSMENT: Mr. Driverlt with diverticulitis and also internal hemorrhoid. PLAN: Okay to discharge home on Cipro and Flagyl for 5 more days and outpatient management with possible elective surgery in his hometown. MD GHADA Oliveira/WILLIAML /[id number]
== END 2020-01-01 10:04 | disposition home or self-care (01) | DRG 379 ==
LOC: ER 11:18 → ERHOLD 13:10 → MED/SURG2 14:57 → OBSVTOIN 12-29 08:58
PROVIDERS: ADMIT Family Medicine; ATTEND Family Medicine
PROC: 0DBP8ZX Excision of Rectum, Via Natural or Artificial Opening Endoscopic, Diagnostic (ICD-10-PCS; 2019-12-31)
PROC: 0DBN8ZX Excision of Sigmoid Colon, Via Natural or Artificial Opening Endoscopic, Diagnostic (ICD-10-PCS; principal; 2019-12-31 13:15)
PROC: 0DBL8ZX Excision of Transverse Colon, Via Natural or Artificial Opening Endoscopic, Diagnostic (ICD-10-PCS; 2019-12-31 13:15)
DX: K57.33 Diverticulitis of large intestine without perforation or abscess with bleeding (principal); K64.8 Other hemorrhoids; D64.9 Anemia, unspecified; K63.5 Polyp of colon; I10 Essential (primary) hypertension; Z86.010 Personal history of colon polyps
CPT/HCPCS: 36415; 45380; 45385; 74177; 80048; 80053; 82270; 82550; 82553; 83735; 84484; 85025; 85610; 85730; 86850; 86900; 87635; 88305; 88312; 96361; 99284; G0378; J1610; J2543; J7030; Q9967